=== PATIENT | female | born 1960 ===

== ENCOUNTER 2017-05-23 06:47 | Day surgery (SDC) | payer MEDICAID ==
[2017-05-23 07:09] VITALS: BMI 24.9
[2017-05-23] MEDS ORDERED: Propofol 10 mg/ml Inj (20 ML) ONE (08:53)
[2017-05-23 09:33] VITALS: O2SAT 100
[2017-05-23 12:44] VITALS: BP 113/75; PULSE 68; RESP 19; TEMP 97.1
== END 2017-05-23 11:15 | disposition home or self-care (01) ==
LOC: C.ENDO 06:47
PROVIDERS: ATTEND Internal Medicine Gastroenterology
DX: Z12.11 Encounter for screening for malignant neoplasm of colon (principal); K63.5 Polyp of colon; K64.0 First degree hemorrhoids; I10 Essential (primary) hypertension; E55.9 Vitamin D deficiency, unspecified; F17.210 Nicotine dependence, cigarettes, uncomplicated
CPT/HCPCS: 45380; 88305; J2704

== ENCOUNTER 2018-02-10 22:12 | Emergency (ER) | payer MEDICAID ==
[2018-02-10 22:12] VITALS: BMI 25.5
--- NOTE | 2018-02-10 22:43 | C.PDOC ---
History Of Present Illness 57 year old female presents to the ED for evaluation of headache to her bilateral frontal regions which began today. Patient states pain is increased with neck movement. She denies fever, chills, nausea, vomiting or recent injury/ trauma. Chief Complaint (Nursing): Headache History Per: Patient History/Exam Limitations: no limitations Onset/Duration Of Symptoms: Hrs Current Symptoms Are (Timing): Still Present Quality: Aching, "Pain" Associated Symptoms: denies: Nausea, Vomiting Additional History Per: Patient Past Medical History Reviewed: Historical Data, Nursing Documentation, Vital Signs Vital Signs: Last Vital Signs Temp 98.6 F 02/11/18 02:21 Pulse 71 02/11/18 02:21 Resp 16 02/11/18 02:21 BP 116/80 02/11/18 02:21 Pulse Ox 98 02/11/18 02:21 - Medical History PMH: Anemia, Gall Bladder Disease, HTN Denies: Chronic Kidney Disease Surgical History: Cholecystectomy - [facility] Procedures (11/13/17) INSPECTION OF BLADDER, ENDO (11/13/17) RELEASE LARGE INTESTINE, PERCUTANEOUS ENDOSCOPIC APPROACH (11/13/17) RELEASE PERITONEUM, PERCUTANEOUS ENDOSCOPIC APPROACH (11/13/17) REPOSITION VAGINA, PERCUTANEOUS ENDOSCOPIC APPROACH (11/13/17) RESECTION OF BI FALLOPIAN TUBE, VIA OPENING W PERC ENDO (11/13/17) RESECTION OF BILATERAL OVARIES, VIA OPENING W PERC ENDO (11/13/17) RESECTION OF UTERUS, VIA OPENING W PERC ENDO (11/13/17) ROBOTIC ASSISTED PROCEDURE OF TRUNK, PERC ENDO APPROACH (11/13/17) Family History: States: Unknown Family Hx - Social History Hx Tobacco Use: Yes Hx Alcohol Use: No Hx Substance Use: No - Immunization History Hx Tetanus Toxoid Vaccination: No Hx Influenza Vaccination: No Hx Pneumococcal Vaccination: No Review Of Systems Gastrointestinal: Negative for: Nausea, Vomiting Neurological: Positive for: Headache Physical Exam - Physical Exam Appears: Non-toxic, No Acute Distress Skin: Normal Color, Warm, Dry Head: Atraumatic (no signs of injury ), Normacephalic Eye(s): bilateral: Normal Inspection Oral Mucosa: Moist Neck: Normal ROM, No Midline Cervical Tenderness, No Paracervical Tenderness, Supple Chest: Symmetrical, No Deformity, Tenderness (mild, to bilateral clavicular regions ) Cardiovascular: Rhythm Regular, No Murmur Respiratory: Normal Breath Sounds, No Rales, No Rhonchi, No Wheezing Extremity: Normal ROM, Capillary Refill (less than 2 seconds ) Neurological/Psych: Oriented x3, Normal Speech, Normal Cognition Gait: Steady ED Course And Treatment - Laboratory Results Result Diagrams: 02/10/18 23:09 02/10/18 23:09 O2 Sat by Pulse Oximetry: 99 (on RA) Pulse Ox Interpretation: Normal Progress Note: Bloodwork, urinalysis, CT Head ordered. Ativan IVP and Toradol IVP administered. Disposition Counseled Patient/Family Regarding: Diagnosis - Disposition Referrals: [facility] [Outside] Disposition: HOME/ ROUTINE Disposition Time: 02:40 Condition: STABLE Prescriptions: Naproxen 375 mg PO TIDPC #20 tablet Instructions: Headache, Adult (DC) Forms: [facility] (Maori) - POA Present On Arrival: None - Clinical Impression Clinical Impression: Headache - Scribe Statement The provider has reviewed the documentation as recorded by the Scribe (Marichuy Holly) Provider Attestation: All medical record entries made by the Scribe were at my direction and personally dictated by me. I have reviewed the chart and agree that the record accurately reflects my personal performance of the history, physical exam, medical decision making, and the department course for this patient. I have also personally directed, reviewed, and agree with the discharge instructions and disposition.
[2018-02-10 23:15] LABS: BASO % 0.7 % (0.0-2.0); EOS # 0.1 K/uL (0.0-0.7); HEMOGLOBIN 14.5 g/dL (11.0-16.0); LYMPH # 2.2 K/uL (1.0-4.3); LYMPH % 32.1 % (20.0-40.0); MEAN CELL VOLUME 84.9 fL (81.0-99.0); MEAN CORPUSCULAR HEMOGLOBIN 28.5 pg (27.0-31.0); MEAN CORPUSCULAR HGB CONC 33.6 g/dL (33.0-37.0); MEAN PLATELET VOLUME 8.4 fL (7.2-11.7); MONO # 0.7 K/uL (0.0-0.8); MONO % 9.7 % (0.0-10.0); NEUT # 3.8 K/uL (1.8-7.0); NEUT % 55.5 % (50.0-75.0); RBC 5.07 Mil/uL (3.80-5.20); RED CELL DISTRIBUTION WIDTH 13.7 % (11.5-14.5); WHITE BLOOD COUNT 6.9 K/uL (4.8-10.8)
[2018-02-10 23:25] LABS: ALB/GLOB RATIO 1.3 (1.0-2.1); ALBUMIN 4.1 g/dL (3.5-5.0); ALT/SGPT 15 U/L (9-52); AST/SGOT 23 U/L (14-36); BLOOD UREA NITROGEN 15 mg/dL (7-17); CALCIUM 9.3 mg/dl (8.6-10.4); GFR AFRICAN-AMERICAN > 60; GFR NON-AFRICAN AMERICAN > 60
--- NOTE | 2018-02-11 01:58 | CT ---
EXAM: CT Head Without Intravenous Contrast CLINICAL HISTORY: 57 years old, female; Pain; Headache TECHNIQUE: Axial computed tomography images of the head/brain without intravenous contrast. All CT scans at this facility use one or more dose reduction techniques, viz.: automated exposure control; ma/kV adjustment per patient size (including targeted exams where dose is matched to indication; i.e. head); or iterative reconstruction technique. COMPARISON: No relevant prior studies available. FINDINGS: Brain: Minimal atrophy. No intracranial hemorrhage. No mass. No definite edema. Ventricles: No hydrocephalus. Bones/joints: No acute fracture. Fracture right occipital bone, chronic. Soft tissues: Unremarkable. Sinuses: No acute sinusitis. Mastoid air cells: No mastoid effusion. Orbits: Unremarkable as visualized. IMPRESSION: 1. No definite acute intracranial abnormality. 2. Incidental/non-acute findings are described above.
[2018-02-11 02:22] VITALS: BP 116/80; PULSE 71; RESP 16; TEMP 98.6
[2018-02-11 02:42] VITALS: O2SAT 99
== END 2018-02-11 02:50 | disposition home or self-care (01) ==
LOC: C.ER 22:12
DX: I10 Essential (primary) hypertension (principal); Z72.0 Tobacco use
CPT/HCPCS: 70450; 80053; 84703; 85025; 96374; 96375; 99285; J1885; J2060

== ENCOUNTER 2018-03-31 19:45 | Emergency (ER) | payer MEDICAID ==
[2018-03-31 19:45] VITALS: BMI 25.5
[2018-03-31] MEDS ORDERED: Sodium Chloride 0.9% 500 ML IV ONE (20:10)
--- NOTE | 2018-03-31 20:11 | C.PDOC ---
History Of Present Illness 57 year old female with PMHx of HTN presents to the ED c/o sudden onset suprapubic pain that started at 19:30 today. Patient reports her pain became unbearable which prompted the visit to the ED today. Patient states she had total hysterectomy done in the past. Patient denies fever, chills, nausea, vomit , diarrhea, dysuria, hematuria. Chief Complaint (Nursing): Abdominal Pain History Per: Patient History/Exam Limitations: no limitations Onset/Duration Of Symptoms: Hrs (1) Current Symptoms Are (Timing): Still Present Severity: Moderate Location Of Pain/Discomfort: Suprapubic Radiation Of Pain To:: None Quality Of Discomfort: "Pain" Exacerbating Factors: None Alleviating Factors: None Recent travel outside of the [place]: No Additional History Per: Patient Abnormal Vaginal Bleeding: No Past Medical History Reviewed: Historical Data, Nursing Documentation, Vital Signs Vital Signs: Last Vital Signs Temp 98.0 F 03/31/18 21:37 Pulse 73 03/31/18 21:37 Resp 20 03/31/18 21:37 BP 118/81 03/31/18 21:37 Pulse Ox 99 03/31/18 21:37 - Medical History PMH: Anemia, Gall Bladder Disease, HTN Denies: Chronic Kidney Disease Surgical History: Cholecystectomy Other Surgeries: total hysterectomy - [facility] Procedures (11/13/17) INSPECTION OF BLADDER, ENDO (11/13/17) RELEASE LARGE INTESTINE, PERCUTANEOUS ENDOSCOPIC APPROACH (11/13/17) RELEASE PERITONEUM, PERCUTANEOUS ENDOSCOPIC APPROACH (11/13/17) REPOSITION VAGINA, PERCUTANEOUS ENDOSCOPIC APPROACH (11/13/17) RESECTION OF BI FALLOPIAN TUBE, VIA OPENING W PERC ENDO (11/13/17) RESECTION OF BILATERAL OVARIES, VIA OPENING W PERC ENDO (11/13/17) RESECTION OF UTERUS, VIA OPENING W PERC ENDO (11/13/17) ROBOTIC ASSISTED PROCEDURE OF TRUNK, PERC ENDO APPROACH (11/13/17) Family History: States: Unknown Family Hx - Social History Hx Tobacco Use: Yes Hx Alcohol Use: No Hx Substance Use: No - Immunization History Hx Tetanus Toxoid Vaccination: No Hx Influenza Vaccination: Yes Hx Pneumococcal Vaccination: Yes Review Of Systems Constitutional: Negative for: Fever, Chills Cardiovascular: Negative for: Chest Pain, Palpitations Gastrointestinal: Positive for: Abdominal Pain. Negative for: Nausea, Vomiting Genitourinary: Negative for: Dysuria, Hematuria, Vaginal Discharge, Vaginal Bleeding Musculoskeletal: Negative for: Back Pain Physical Exam - Physical Exam Appears: Non-toxic, No Acute Distress Skin: Normal Color, Warm, Dry Head: Atraumatic, Normacephalic Eye(s): bilateral: Normal Inspection Oral Mucosa: Moist Neck: Normal ROM, Supple Chest: Symmetrical Cardiovascular: Rhythm Regular Respiratory: Normal Breath Sounds, No Rales, No Rhonchi, No Wheezing Gastrointestinal/Abdominal: Soft, Tenderness (suprapubic), Guarding, No Rebound Back: No CVA Tenderness Extremity: Normal ROM, No Tenderness, No Swelling Neurological/Psych: Oriented x3, Normal Speech Gait: Steady ED Course And Treatment - Laboratory Results Result Diagrams: 03/31/18 20:25 03/31/18 20:25 O2 Sat by Pulse Oximetry: 100 (ON RA) Pulse Ox Interpretation: Normal Medical Decision Making Medical Decision Making: Impression: suprapubic pain Plan: * Labs * normal * UA * Toradol 30 mg IVP * IV fluids Patient reports she feels better no pain. Patient will follow up with OB for further evaluation Disposition - Disposition Referrals: Deep Nielsen MD [Primary Care Provider] - Disposition: HOME/ ROUTINE Disposition Time: 03:18 Condition: GOOD Instructions: Acute Abdomen (Belly Pain) Forms: [facility] (Setswana) Print Language: ALBANIAN - Clinical Impression Clinical Impression: Abdominal pain - Scribe Statement The provider has reviewed the documentation as recorded by the Scribe Carter Francisco All medical record entries made by the Scribe were at my direction and personally dictated by me. I have reviewed the chart and agree that the record accurately reflects my personal performance of the history, physical exam, medical decision making, and the department course for this patient. I have also personally directed, reviewed, and agree with the discharge instructions and disposition.
[2018-03-31] MEDS ORDERED: Sodium Chloride 0.9% 1,000 ML ONE (20:19)
[2018-03-31 20:30] LABS: BASO # 0.1 K/uL (0.0-0.2); BASO % 0.9 % (0.0-2.0); EOS # 0.1 K/uL (0.0-0.7); EOS % 1.6 % (0.0-4.0); HEMOGLOBIN 14.5 g/dL (11.0-16.0); LYMPH % 27.3 % (20.0-40.0); MEAN CELL VOLUME 83.9 fL (81.0-99.0); MEAN CORPUSCULAR HEMOGLOBIN 27.6 pg (27.0-31.0); MEAN CORPUSCULAR HGB CONC 32.9 g/dL (33.0-37.0); MEAN PLATELET VOLUME 8.3 fL (7.2-11.7); MONO # 0.6 K/uL (0.0-0.8); MONO % 8.8 % (0.0-10.0); NEUT # 4.5 K/uL (1.8-7.0); NEUT % 61.4 % (50.0-75.0); NRBC % 0.1 % (0.0-2.0); RBC 5.26 Mil/uL (3.80-5.20); RED CELL DISTRIBUTION WIDTH 13.4 % (11.5-14.5); WHITE BLOOD COUNT 7.3 K/uL (4.8-10.8)
[2018-03-31 20:39] LABS: SQUAMOUS EPITHIAL < 1 /hpf (0-5); URINE BILIRUBIN NEGATIVE (NEGATIVE); URINE BLOOD NEGATIVE (NEGATIVE); URINE CLARITY Clear (Clear); URINE COLOR Yellow (YELLOW); URINE GLUCOSE (UA) NORMAL (Normal); URINE LEUKOCYTE ESTERASE NEG Leu/uL (Negative); URINE PROTEIN NEGATIVE (NEGATIVE); URINE UROBILINOGEN NORMAL mg/dL (0.2-1.0)
[2018-03-31 20:43] LABS: ALB/GLOB RATIO 1.5 (1.0-2.1); ALBUMIN 4.2 g/dL (3.5-5.0); ALT/SGPT 27 U/L (9-52); AST/SGOT 22 U/L (14-36); BLOOD UREA NITROGEN 12 mg/dL (7-17); CALCIUM 9.2 mg/dl (8.6-10.4); GFR AFRICAN-AMERICAN > 60; GFR NON-AFRICAN AMERICAN > 60; LIPASE 193 U/L (23-300)
[2018-03-31 21:39] VITALS: BP 118/81; PULSE 73; RESP 20; TEMP 98
[2018-04-01 03:19] VITALS: O2SAT 100
== END 2018-03-31 21:37 | disposition home or self-care (01) ==
LOC: C.ER 19:45 → SUPCPDRO 19:45 → C.ER 21:37
DX: R10.30 Lower abdominal pain, unspecified (principal)
CPT/HCPCS: 80053; 81001; 83690; 85025; 96361; 96374; 99285; J1885; J7040

== ENCOUNTER 2018-07-01 13:17 | Emergency (ER) | payer MEDICAID ==
[2018-07-01 13:18] VITALS: BMI 25.5
[2018-07-01 13:44] VITALS: BP 131/83; PULSE 70; RESP 16; TEMP 98.2; O2SAT 99
--- NOTE | 2018-07-01 14:15 | C.PDOC ---
History Of Present Illness 58 year old female presents to the ED with left thumb pain for 2 weeks. The patient notes the pain exacerbated over the last 2 days, prompting her visit to the ED. She has had no trauma or surgical involvement, except for an incision wound 10 years ago. The patient notes visiting her PMD regarding the pain last week and was referred to a specialist but she has not been able to see them. She denies any weakness or numbness. Pt is right hand dominant. Time Seen by Provider: 07/01/18 13:59 Chief Complaint (Nursing): Upper Extremity Problem/Injury History Per: Patient History/Exam Limitations: no limitations Onset/Duration Of Symptoms: Days Current Symptoms Are (Timing): Still Present Recent travel outside of the [place]: No Past Medical History Reviewed: Historical Data, Nursing Documentation, Vital Signs Vital Signs: Last Vital Signs Temp 98.2 F 07/01/18 13:42 Pulse 70 07/01/18 13:42 Resp 16 07/01/18 13:42 BP 131/83 07/01/18 13:42 Pulse Ox 99 07/01/18 13:42 - Medical History PMH: Anemia, Gall Bladder Disease, HTN Denies: Chronic Kidney Disease Surgical History: Cholecystectomy - [facility] Procedures (11/13/17) INSPECTION OF BLADDER, ENDO (11/13/17) RELEASE LARGE INTESTINE, PERCUTANEOUS ENDOSCOPIC APPROACH (11/13/17) RELEASE PERITONEUM, PERCUTANEOUS ENDOSCOPIC APPROACH (11/13/17) REPOSITION VAGINA, PERCUTANEOUS ENDOSCOPIC APPROACH (11/13/17) RESECTION OF BI FALLOPIAN TUBE, VIA OPENING W PERC ENDO (11/13/17) RESECTION OF BILATERAL OVARIES, VIA OPENING W PERC ENDO (11/13/17) RESECTION OF UTERUS, VIA OPENING W PERC ENDO (11/13/17) ROBOTIC ASSISTED PROCEDURE OF TRUNK, PERC ENDO APPROACH (11/13/17) Family History: States: Unknown Family Hx - Social History Hx Tobacco Use: Yes Hx Alcohol Use: No Hx Substance Use: No - Immunization History Hx Tetanus Toxoid Vaccination: No Hx Influenza Vaccination: Yes Hx Pneumococcal Vaccination: Yes Review Of Systems Except As Marked, All Systems Reviewed And Found Negative. Musculoskeletal: Positive for: Hand Pain (left thumb pain ) Neurological: Negative for: Weakness, Numbness Physical Exam - Physical Exam Appears: Well, Non-toxic Skin: Warm, Dry Head: Atraumatic, Normacephalic Eye(s): bilateral: Normal Inspection, EOMI Nose: Normal Oral Mucosa: Moist Neck: Normal ROM, Supple Chest: Symmetrical Respiratory: No Accessory Muscle Use Extremity: No Normal ROM (Decreased ROM at the PIP secondary to pain), Capillary Refill (<2 seconds), No Swelling Pulses: Left Radial: Normal, Right Radial: Normal Neurological/Psych: Oriented x3, Normal Speech, Normal Cognition, Normal Motor, Normal Sensation Gait: Steady ED Course And Treatment O2 Sat by Pulse Oximetry: 99 (RA) Pulse Ox Interpretation: Normal Progress Note: PT is experincing pain with ROM and "clicking" at the joint. Pt was instructed splinting, RICE and follow up with hand specialist. Discussed return precautions . Director Organizational used to ensure understanding. Disposition - Disposition Referrals: Michael Gordon MD [Medical Doctor] - Disposition: HOME/ ROUTINE Disposition Time: 14:43 Condition: STABLE Additional Instructions: Follow up with the hand specialist in 1-2 days. Return to ER if symptoms persist or worsen. Instructions: Common Finger Injuries (DC) Forms: [employer] [facility] (Latvian) - Clinical Impression Clinical Impression: Finger tendinitis - PA / ENTREPRENEUR / Resident Statement MD/DO has reviewed & agrees with the documentation as recorded. - Scribe Statement The provider has reviewed the documentation as recorded by the Scribe (Frank Lind) All medical record entries made by the Scribe were at my direction and personally dictated by me. I have reviewed the chart and agree that the record accurately reflects my personal performance of the history, physical exam, medical decision making, and the department course for this patient. I have also personally directed, reviewed, and agree with the discharge instructions and disposition.
--- NOTE | 2018-07-01 14:56 | RAD ---
Date of service: 07/01/2018 PROCEDURE: Left Thumb radiographs. HISTORY: pain COMPARISON: None. TECHNIQUE: PA radiograph of the left hand, as well as spot oblique and lateral images of thumb were obtained. FINDINGS: LEFT THUMB: Normal left thumb, without fracture or focal lesion. Remainder of the left hand (as seen on the AP view) grossly unremarkable. JOINTS: Joint spaces appear relatively preserved. SOFT TISSUES: Normal. OTHER FINDINGS: None. IMPRESSION: No evidence of acute displaced fracture nor dislocation. If symptoms persist or occult fracture suspected clinically recommend repeat radiographs in 5-10 days as most fractures should become radiographically evident in this timeframe.
== END 2018-07-01 15:08 | disposition home or self-care (01) ==
LOC: C.ER 13:17
DX: M77.8 Other enthesopathies, not elsewhere classified (principal)

== ENCOUNTER 2018-11-21 17:34 | Emergency (ER) | payer MEDICAID ==
[2018-11-21 17:37] VITALS: BMI 25.7
[2018-11-21 17:40] VITALS: RESP 18
[2018-11-21] MEDS ORDERED: Sodium Chloride 0.9% 1,000 ML IV ONE ×2 (19:18→21:09)
--- NOTE | 2018-11-21 19:18 | C.PDOC ---
History Of Present Illness The patient presents to the ED for evaluation of abdominal pain and diarrhea which began 3 days ago. She describer her diarrhea as watery, stating it feels like "water flowing out" of her. Patient states she just returned from [facility], and ate pork and homemade cao during her stay. She denies fever, chills, and vomiting. Time Seen by Provider: 11/21/18 19:17 Chief Complaint (Nursing): GI Problem History Per: Patient History/Exam Limitations: no limitations Onset/Duration Of Symptoms: Days (3) Current Symptoms Are (Timing): Still Present Severity: Mild Pain Scale Rating Of: 3 Location Of Pain/Discomfort: Epigastric (mid) Radiation Of Pain To:: None Quality Of Discomfort: Dull, Cramping, "Pain" Associated Symptoms: denies: Fever, Chills, Vomiting Exacerbating Factors: None Alleviating Factors: None Last Bowel Movement: Today Recent travel outside of the [place]: Yes Additional History Per: Patient Abnormal Vaginal Bleeding: No Past Medical History Reviewed: Historical Data, Nursing Documentation, Vital Signs Vital Signs: Last Vital Signs Temp 97.5 F L 11/21/18 17:37 Pulse 92 H 11/21/18 17:37 Resp 18 11/21/18 17:37 BP 126/83 11/21/18 17:37 Pulse Ox 98 11/21/18 17:37 - Medical History PMH: Anemia, Gall Bladder Disease, HTN Denies: Chronic Kidney Disease Surgical History: Cholecystectomy - [facility] Procedures (11/13/17) INSPECTION OF BLADDER, ENDO (11/13/17) RELEASE LARGE INTESTINE, PERCUTANEOUS ENDOSCOPIC APPROACH (11/13/17) RELEASE PERITONEUM, PERCUTANEOUS ENDOSCOPIC APPROACH (11/13/17) REPOSITION VAGINA, PERCUTANEOUS ENDOSCOPIC APPROACH (11/13/17) RESECTION OF BI FALLOPIAN TUBE, VIA OPENING W PERC ENDO (11/13/17) RESECTION OF BILATERAL OVARIES, VIA OPENING W PERC ENDO (11/13/17) RESECTION OF UTERUS, VIA OPENING W PERC ENDO (11/13/17) ROBOTIC ASSISTED PROCEDURE OF TRUNK, PERC ENDO APPROACH (11/13/17) Family History: States: Unknown Family Hx - Social History Hx Tobacco Use: Yes Hx Alcohol Use: No Hx Substance Use: No - Immunization History Hx Tetanus Toxoid Vaccination: No Hx Influenza Vaccination: Yes Hx Pneumococcal Vaccination: Yes Review Of Systems Constitutional: Negative for: Fever, Chills Cardiovascular: Negative for: Chest Pain, Palpitations Respiratory: Negative for: Cough, Shortness of Breath Gastrointestinal: Positive for: Abdominal Pain, Diarrhea. Negative for: Nausea, Vomiting, Constipation Genitourinary: Negative for: Dysuria, Frequency, Hematuria Skin: Negative for: Rash, Lesions, Jaundice, Bruising Neurological: Negative for: Weakness, Numbness Physical Exam - Physical Exam Appears: Non-toxic, No Acute Distress Skin: Warm, Dry Head: Normacephalic Eye(s): bilateral: Normal Inspection Oral Mucosa: Moist Neck: Supple Chest: Symmetrical, No Deformity Cardiovascular: Rhythm Regular, No Murmur Respiratory: No Rales, No Rhonchi, No Wheezing Gastrointestinal/Abdominal: Soft, Tenderness (mid-epigastric ), No Guarding, No Rebound Extremity: Normal ROM, Capillary Refill (less than 2 seconds ) Neurological/Psych: Oriented x3 ED Course And Treatment - Laboratory Results Result Diagrams: 11/21/18 19:33 11/21/18 19:33 O2 Sat by Pulse Oximetry: 98 (on RA) Pulse Ox Interpretation: Normal Progress Note: Bloodwork and urinalysis ordered and reviewed. Protonix IVP and IV Fluids given. Pt unable to provide stool for O&P, WBS stool or grahm stain Reevaluation Time: 23:00 Reassessment Condition: Improved Disposition Counseled Patient/Family Regarding: Studies Performed, Diagnosis, Need For Followup, Rx Given - Disposition Referrals: Deep Nielsen MD [Staff Provider] - Disposition: HOME/ ROUTINE Disposition Time: 19:18 Condition: FAIR Additional Instructions: Please return if symptoms recur Prescriptions: Metronidazole [Flagyl] 500 mg PO TID #21 tablet Instructions: Acute Abdomen (Belly Pain), Adult (DC), Diarrhea and Traveler's Diarrhea, Adult (DC), Colitis (DC) Forms: [employer] [facility] (Turkmen) - Clinical Impression Clinical Impression: Abdominal pain, Ileitis, Colitis - Scribe Statement The provider has reviewed the documentation as recorded by the Scribe All medical record entries made by the Scribe were at my direction and personally dictated by me. I have reviewed the chart and agree that the record accurately reflects my personal performance of the history, physical exam, medical decision making, and the department course for this patient. I have also personally directed, reviewed, and agree with the discharge instructions and disposition.
[2018-11-21 19:37] LABS: BASO % 0.3 % (0.0-2.0); EOS # 0.1 K/uL (0.0-0.7); EOS % 0.8 % (0.0-4.0); HEMOGLOBIN 14.5 g/dL (11.0-16.0); LYMPH # 1.4 K/uL (1.0-4.3); LYMPH % 20.5 % (20.0-40.0); MEAN CORPUSCULAR HEMOGLOBIN 28.3 pg (27.0-31.0); MEAN CORPUSCULAR HGB CONC 32.6 g/dL (33.0-37.0); MEAN PLATELET VOLUME 9.2 fL (7.2-11.7); MONO # 0.7 K/uL (0.0-0.8); MONO % 9.9 % (0.0-10.0); NEUT # 4.7 K/uL (1.8-7.0); NEUT % 68.5 % (50.0-75.0); NRBC % 0.1 % (0.0-2.0); RBC 5.14 Mil/uL (3.80-5.20); RED CELL DISTRIBUTION WIDTH 13.7 % (11.5-14.5); WHITE BLOOD COUNT 6.8 K/uL (4.8-10.8)
[2018-11-21 19:41] LABS: MEAN CELL VOLUME 86.8 fL (81.0-99.0)
[2018-11-21 19:44] LABS: SQUAMOUS EPITHIAL < 1 /hpf (0-5); URINE AMORPHOUS SEDIMENT RARE /ul (<OCC); URINE BILIRUBIN NEGATIVE (NEGATIVE); URINE BLOOD NEGATIVE (NEGATIVE); URINE CALCIUM OXALATE CRYSTALS RARE /hpf (<OCC); URINE CLARITY Turbid (Clear); URINE COLOR Yellow (YELLOW); URINE GLUCOSE (UA) NORMAL (Normal); URINE LEUKOCYTE ESTERASE NEG Leu/uL (Negative); URINE PROTEIN NEGATIVE (NEGATIVE); URINE UROBILINOGEN NORMAL mg/dL (0.2-1.0)
[2018-11-21 19:56] LABS: ALB/GLOB RATIO 1.7 (1.0-2.1); ALBUMIN 4.1 g/dL (3.5-5.0); ALT/SGPT 22 U/L (9-52); AST/SGOT 21 U/L (14-36); BLOOD UREA NITROGEN 19 mg/dL (7-17); CALCIUM 8.5 mg/dl (8.6-10.4); GFR NON-AFRICAN AMERICAN > 60; LIPASE 166 U/L (23-300)
[2018-11-21] MEDS ORDERED: Iohexol 300 100 ML IJ ONE (21:38)
[2018-11-21 23:16] VITALS: BP 103/68; PULSE 76; TEMP 97.6; O2SAT 99
--- NOTE | 2018-11-22 10:15 | CT ---
Date of service: 11/21/2018 PROCEDURE: CT Abdomen and Pelvis with contrast HISTORY: Abdominal pain and diarrhea COMPARISON: None available. TECHNIQUE: CT scan of the abdomen and pelvis was performed after administration of intravenous contrast. Oral contrast was not administered. Coronal and sagittal reformatted images were obtained. Contrast dose: 100 mL Visipaque 320 Radiation dose: Total exam DLP = 432.05 mGy-cm. This CT exam was performed using one or more of the following dose reduction techniques: Automated exposure control, adjustment of the mA and/or kV according to patient size, and/or use of iterative reconstruction technique. FINDINGS: LOWER THORAX: The visualized lungs are clear. LIVER: Normal in size with homogeneous enhancement. Fatty liver. A subcentimeter low-attenuation lesion in the hepatic dome may represent a cyst or hemangioma. No ductal dilatation. GALLBLADDER AND BILE DUCTS: Surgically absent. PANCREAS: Normal in size with homogeneous enhancement. No gross lesion or ductal dilatation. SPLEEN: Normal in size and appearance. ADRENALS: No discrete nodule. KIDNEYS AND URETERS: Normal in size with homogeneous enhancement. No hydronephrosis. No solid mass. Are few simple cysts in the kidneys, the largest 1.5 x 1.5 cm cyst in the left interpolar region posteriorly. VASCULATURE: No aortic aneurysm. There are no aortic atherosclerotic calcifications or mural plaque present. BOWEL: Evaluation of the bowel is limited in the absence of oral contrast. The proximal small bowel loops are normal in caliber. There are fluid-filled dilated mid small bowel loops. There is segmental circumferential mural thickening and mucosal enhancement in the distal small bowel loops. The ileocecal junction is normal. There is fluid in the colon and rectum and diffuse mucosal enhancement in the colon and rectum. No bowel obstruction. APPENDIX: Normal appendix. PERITONEUM: No free fluid. No free air. LYMPH NODES: No enlarged lymph nodes. BLADDER: Well distended and normal in appearance. REPRODUCTIVE: The uterus is surgically absent. BONES: No acute fracture. Within normal limits for the patient's age. OTHER FINDINGS: None. IMPRESSION: Fluid-filled dilated mid small bowel loops, segmental circumferential mural thickening and enhancement in the distal small bowel loops, fluid in the colon and rectum with mucosal enhancement. No bowel obstruction. Findings are most compatible with acute nonspecific infectious/inflammatory enterocolitis. Additional findings as described above. A preliminary report was provided by [facility].
== END 2018-11-21 23:18 | disposition home or self-care (01) ==
LOC: C.ER 17:34
DX: K52.9 Noninfective gastroenteritis and colitis, unspecified (principal); R10.13 Epigastric pain
CPT/HCPCS: 74177; 80053; 81001; 83690; 85025; 96374; 99284; C9113; J7030; Q9967